=== PATIENT | male | born 1960 | race Caucasian/White ===

== ENCOUNTER 2016-06-23 17:50 | Emergency (ER) | payer BC ==
[2016-06-23 18:49] VITALS: BMI 37.3
[2016-06-23] MEDS ORDERED: LIDOCAINE 2% 5 ML (PRESERVATIVE FREE) VIAL INF ONE (19:13)
--- NOTE | 2016-06-23 19:58 | EDPRACDOC ---
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 NO OTHER COMPLAINTS. - Pain Pain Severity: Mild Bleeding: Reports: Controlled Associated Signs & Symptoms: Reports: None ED Past Medical History - History Reviewed Yes Nurses notes reviewed and agree except as marked - Patient Medical History Cardiac History: Reports: Hypertension Psychological History: Denies: Depression - Social Medical History Smoking Status: Heavy tobacco smoker (5 or more cigarettes/day or daily pipe/ cigar) EDM Review of Systems - Review of Systems ROS Negative Except as Marked: Yes All systems reviewed and were negative except as marked Constitutional: No Symptoms Reported Mouth: Other (LACERATION) - Physical Exam Constitutional: Alert (Awake), No apparent distress Oriented to: Time, Person, Place Last recorded Vital Signs: Last Vital Signs Temp 98.1 F 06/23/16 18:55 Pulse 94 06/23/16 18:55 Resp 20 06/23/16 18:55 BP 184/87 H 06/23/16 18:55 Pulse Ox 96 06/23/16 18:55 Oxygen Pulse Oxygen Saturation 96 O2 Device Room Air Oxygen Flow Rate Fraction of Inspired Oxygen ( FIO2) - HEENT Head: Normal Eye Exam: Normal Oropharynx: Other (VERTICAL LACERATION TO LEFT LOWER LIP; DOES NOT APPEAR TO INVOLVE THE OCULARIS MUSCLE; NO BLEEDING; TEETH BENEATH ARE INTACT) Tympanic Membrane: Normal ENT EAC: Normal Nose: No Symptoms Reported Neck: Normal, Denies Pain, Midline - Respiratory/Cardiovascular Respiratory: Normal - CTA Cardiovascular: Normal - GI Palpation: Normal Tenderness: Non tender - Musculoskeletal Back: Normal Extremities: Normal - Integumentary Skin: Normal Lymphatics: Normal - Neurologic Mood Description: Normal Thought: Coherent Perception: Normal ED Procedures - Suture/Laceration Suture #1 Left Lower Head Wound Length (cm): 1.0 Wound's Depth, Shape: linear Wound Explored: clean Betadine Prep?: Yes Volume Anesthetic (ccs): 2 Wound Undermining: minimal Wound Margins: Revised Wound Repaired With: Sutures Suture Size/Type: prolene Number of Sutures: 3 Layer Closure?: Yes Deep Layer Suture Size/Type: 4:0, chromic (VICRYL) Number Deep Layer Sutures: 1 Sterile Dressing Applied?: No Decision Time to Discharge: 19:56 - Departure Disposition: Home Condition: Good Final Diagnosis: [id number] Instructions: Care For Your Stitches (ED) Education/Counseling Given To: Patient Education/Counseling Given Regarding: Diagnosis, Treatment, Follow Up Referrals: Joe Adam PA [Primary Care Provider] - One Week Additional Instructions: BE SURE TO CLEAN SUTURES AFTER EATING. HAVE REMOVED IN 7 DAYS.
[2016-06-23 20:12] VITALS: BP 152/71; PULSE 87
[2016-06-23 22:14] VITALS: TEMP 97.5
== END 2016-06-23 20:04 | disposition home or self-care (01) ==
LOC: EDMC 17:50
DX: S01.511A Laceration without foreign body of lip, initial encounter (principal); W19.XXXA Unspecified fall, initial encounter; I10 Essential (primary) hypertension; F17.200 Nicotine dependence, unspecified, uncomplicated
CPT/HCPCS: 12011; 99283; J2001